=== PATIENT | female | born 1995 | race Two or more races ===

== ENCOUNTER 2025-04-08 12:57 | Emergency (ER) | payer MEDICAID, SELFPAY ==
[2025-04-08 13:21] VITALS: BP 151/93; PULSE 81; RESP 20; TEMP 37.1; O2SAT 99; BMI 24.3
--- NOTE | 2025-04-08 13:47 | PD.EDWOUND ---
ED Wound/Laceration-RME/HPI General Chief Complaint: Wound/Laceration Stated Complaint: FINGER LAC Time Seen by Provider: 04/08/25 13:20 Arrival date/time: 04/08/25 12:57 RME / HPI RME / HPI narrative: 30-year-old female patient came in for evaluation regarding multiple finger laceration. Patient forcibly open the window and broke sustaining laceration to the left pinky finger left thumb and right pinky finger with inability to fully flex the finger. Patient tetanus vaccination is up-to-date. Patient denies any other injury. Incident happened few minutes prior to ER visit. Related Data Previous Rx's ?Medication ?Instructions ?Recorded cephalexin 500 mg capsule 500 mg PO TID 7 days #21 caps 04/08/25 ibuprofen 800 mg tablet 800 mg PO Q8H PRN pain #30 tabs 04/08/25 Allergies Allergy/AdvReac Type Severity Reaction Status Date / Time NKA* Allergy Uncoded 12/08/23 13:51 Review of Systems Review of Systems Narrative Review of Systems: Review of system reviewed and within normal limits except mentioned in HPI ED Exam Narrative Physical exam: VITAL SIGNS: Reviewed. GENERAL APPEARANCE: Alert and interactive, follows commands, no acute distress, HEAD AND FACE: Non-traumatic. ENT: PERRL, pink conjunctivitis, eyelid no trauma, Mucous membrane moist. NECK: Supple, nontender, no nuchal rigidity. CHEST: No tenderness, no crepitus, no paradoxical movement, no retractions. LUNGS: Clear, well ventilated, symmetric, no rales, no wheezing, no ronchi, no stridor, good breath sounds bilaterally. HEART: Regular rate, regular rhythm, no murmur, no gallops. ABDOMEN: Soft, positive bowel sounds, nondistended, no guarding, nontender, no rebound, no masses, RECTAL: Deferred. GENITAL: Deferred. NEUROLOGICAL: Gross motor function intact sensory function intact, Appropriate for age. MUSCULOSKELETAL: low back nontender, full range of motion. EXTREMITIES: 1 cm gaping laceration of the left thumb, 1 cm gaping laceration left pinky finger, full range of motion. 1 cm laceration to the palmar aspect of the left pinky finger at the middle phalanx with inability to fully flex the pinky finger no active bleeding noted SKIN: Color pink, dry, no rash, no lacerations, no abrasions, no contusions. LYMPHATICS: Deferred. Course Quality Measures none Orders Category Date Time Status Set Up Suture Tray STAT Care 04/08/25 13:51 Completed Ketorolac Inj [Toradol Inj] Med 04/08/25 13:52 Discontinued 30 mg IM X1 ONE Lidocaine 1% 20 ml [Xylocaine 1% 20 ML] Med 04/08/25 13:51 Discontinued 10 ml INFL X1 ONE cephALEXin [Keflex] Med 04/08/25 13:51 Discontinued 500 mg PO X1 ONE Vital Signs Vital signs: Vital Signs Temperature 98.8 F 04/08/25 13:21 Pulse Rate 81 04/08/25 13:21 Respiratory Rate 20 04/08/25 13:21 Blood Pressure 151/93 H 04/08/25 13:21 Pulse Oximetry (%) 99 04/08/25 13:21 Oxygen Delivery Method Room Air 04/08/25 13:21 PROCEDURES: Laceration Laceration 1: Site: other (Left pinky finger) Size (cm): 1 Description: linear Depth: simple, single layer Local Anesthetic: lidocaine 1% Amount of anesthesia used (mL): 3 Pre-repair: wound explored, irrigated extensively and deep structures intact Skin layer closed with: nylon Suture size (cm): 5-0 Number of sutures: 4 Technique: simple, interrupted Laceration 2: Site: other (Right pinky finger) Size (cm): 1.5 Description: linear Depth: involves tendon Local Anesthetic: lidocaine 1% Amount of anesthesia used (mL): 3 Pre-repair: wound explored and irrigated extensively Skin layer closed with: nylon Suture size (cm): 5-0 Number of sutures: 4 Technique: simple, interrupted Wound / Laceration MDM Narrative MDM Narrative:: 30-year-old female patient came in for evaluation regarding multiple finger laceration. Patient forcibly open the window and broke sustaining laceration to the left pinky finger left thumb and right pinky finger with inability to fully flex the finger. Patient tetanus vaccination is up-to-date. Patient denies any other injury. Incident happened few minutes prior to ER visit. Repair and suturing was done by me see procedure notes. Patient's right pinky finger will not fully bend at the DIP joint area I suspect tendon transection. Patient was advised to follow-up with PCP and for referral to hand surgeon for definitive management of the tendon injury. Patient agrees with the plan. Patient received Toradol IM Keflex Imaging is not needed at this time. Patient data External records reviewed:: None Clinical information provided by:: patient Social determinants that could affect healthcare access:: none Patient has the following chronic illnesses:: None How is presenting disease/condition affected by chronic disease/condition?: no chronic disease Evaluation data The following diagnostics were reviewed and interpreted by me:: other (specify) (None) Lab and/or radiology exams considered but not ordered:: None Interpretation Summary: None Medications / Prescriptions Medications or Prescriptions considered but not ordered:: None Medication administrations:: Medication Administration History Discontinued Medications Cephalexin HCl (Cephalexin 250 Mg Capsule) 500 mg PO X1 ONE Stop: 04/08/25 13:52 Last Admin: 04/08/25 14:08 Dose: 500 mg Documented By: ISIDRO Ketorolac Tromethamine (Ketorolac Inj 60 Mg/2 Ml Vial) 30 mg IM X1 ONE Stop: 04/08/25 13:53 Last Admin: 04/08/25 14:07 Dose: 30 mg Documented By: ISIDRO Comments: PT DENIES AT THIS TIME; PT GAVE CONSENT FOR THIS MEDICATION TO BE GIVEN AT THIS TIME Lidocaine HCl (Lidocaine Hcl 1% 20 Ml Vial) 10 ml INFL X1 ONE Stop: 04/08/25 13:52 Last Admin: 04/08/25 14:06 Dose: 10 ml Documented By: ISIDRO Comments: MEDICATION GIVEN TO [employer] Lidocaine Toradol Keflex Consultations Consultation(s) initiated? (list below): No Diagnosis Wound Differential Diagnosis: abrasion and avulsion of skin Most likely diagnosis given after review of the tests above:: Left fifth finger laceration, right fifth finger laceration with tendon injury Admission Indicated Admission indicated?: not indicated Admission Request Was there a request for admission?: No Disposition Plan Disposition Plan: Discharge Discharge Attestation Discharge Attestation: The patient and all family members were given an opportunity to ask questions and understood the discharge instructions. Discharge instructions specifically effects, indications for sooner follow up or return to the emergency department, and the expected course of current diagnosis. Patient condition: Stable Discharge Plan Plan Patient Disposition: HOME (Self Care) Discharge Disposition comment: stable Prescriptions/Referrals Prescriptions/Med Rec: New cephalexin 500 mg capsule 500 mg PO TID 7 Days Qty: 21 0RF ibuprofen 800 mg tablet 800 mg PO Q8H PRN (Reason: pain) Qty: 30 0RF Referrals: No Primary/Family,Physician [Primary Care Provider] - In 1 week Problem List Clinical Impression: Finger laceration involving tendon Patient/Caregiver Discharge Instructions Discharge Activity: activity as tolerated Education Materials: ED Laceration: All Closures Additional Instructions: Thank you for the opportunity for serving you today. You are stable for discharged . You are advised to: Follow-up with your PCP in 1 to 2 days and asked your PCP to refer you to hand surgeon for definitive repair of the flexor tendon of the fifth finger right Return to ED for worsening of symptoms Increase oral fluids Take medication as prescribed For removal of sutures in 7 days Daily dressing with Neosporin as needed Print Language: Com[place]an Stand Alone Forms: Michelle Award Info., Work/School Release, Patient Portal Info Letter PA/FERNANDA Supervising Physician YAQUELIN/FERNANDA Supervising Physician: MD Kari
[2025-04-08] MEDS: LIDOCAINE HCL 1% 20 ML VIAL 10 ML INFL (14:06)
[2025-04-08] MEDS: KETOROLAC INJ 60 MG/2 ML VIAL 30 MG IM (14:07)
== END 2025-04-08 15:39 | disposition home or self-care (01) ==
PROVIDERS: Emergency Provider Emergency Medicine
DX: S66.126A Laceration of flexor muscle, fascia and tendon of right little finger at wrist and hand level, initial encounter (principal); S61.217A Laceration without foreign body of left little finger without damage to nail, initial encounter; S61.012A Laceration without foreign body of left thumb without damage to nail, initial encounter; W25.XXXA Contact with sharp glass, initial encounter; Y93.89 Activity, other specified; Y92.89 Other specified places as the place of occurrence of the external cause
CPT/HCPCS: 12004; 96372; 99284; J1885; J3490; A9270